=== PATIENT | male | born 1985 | race African-American/Black ===

== ENCOUNTER → 2019-01-08 14:13 | Outpatient (CLI) | payer MEDICAID | END | disposition home or self-care (01) | LOC: D.MRI 14:13 | PROVIDERS: ATTEND Orthopaedic Surgery | DX: S83.232A Complex tear of medial meniscus, current injury, left knee, initial encounter (principal); X58.XXXA Exposure to other specified factors, initial encounter ==

== ENCOUNTER 2019-03-03 08:28 | Day surgery (SDC) | payer MEDICAID ==
[2019-02-26 14:07] LABS: HEMATOCRIT 45.5 % (42.0-54.0); HEMOGLOBIN 16.4 g/dL (13.5-17.5); MCH 31.5 pg (26.0-34.0); MCV 87.3 fL (80.0-100.0); MEAN PLATELET VOLUME 9.6 fL (7.4-10.4); RBC 5.21 10x6/uL (4.20-6.10); WBC 9.5 10x3/uL (4.8-10.8)
[2019-02-26 14:35] LABS: CALC OSMOLALITY 275 mosm/kg (275-300); CALCIUM 9.4 mg/dL (8.5-10.1); CHLORIDE - SERUM 102 mmol/L (98-107); CREATININE - SERUM 0.8 mg/dL (0.6-1.3); GLUCOSE 84 mg/dL (74-106); POTASSIUM - SERUM 3.5 mmol/L (3.5-5.1); SODIUM 140 mmol/L (136-145); UREA NITROGEN 6 mg/dL (7-18); eGFR NON AFRICAN AMERICAN > 90 mL/min (90-120)
[~2019-03-03] VITALS: Ht 180.3 cm; Wt 111.6 kg
[~2019-03-03 08:28] MED LIST: BUPROPION XL300 MG PO; BUSPAR10 MG PO; GLUCOPHAGE500 MG PO; INVEGA TRINZA 819 MG; NEURONTIN 300300 MG PO; PROPRANOLOL HCL60 M1 PO; VALTREX500 MG PO; VISTARIL25 MG PO; ZYPREXA20 MG PO
[2019-03-03 10:16] VITALS: BP 133/87; Ht 180.3 cm; Wt 111.6 kg
[2019-03-03] MEDS ORDERED: HYDROCODON-ACE1 EA10 PO (13:20)
--- NOTE | 2019-03-03 13:38 | NUR ---
CARE TO NICOL AWAN RN @[phone]
--- NOTE | 2019-03-03 15:18 | NUR ---
DR CLARK NOTIFIED AND REVIEWED PT'S BEHAVIOR AND ASSESSMENT RESULTS. PT IS A LOW RISK PER DR CLARK. DR. CLARK STATED TO GIVE REWOURCES TO PT AT TIME OF DISCHARGE. NO FURTHER ORDERS AT THIS TIME. RESOURCES REVIEWED WITH PT AND HE VERBALIZED UNDERSTANDING.
--- NOTE | 2019-03-03 19:15 | NUR ---
1420 RECIEVED REPORT ON PT FROM [facility]. PT AWAKE RECIEVED FULL LIW TRAY DENIES PAIN. FLAT AFFECT. DRESSING CDI. ICE PACK TO KNEE. 1450 PSYCH NURSE HERE TO EVALUATE PT FOR SUICIDE PREVENTION. 1600 IV REMOVED AND PT GONE FOR THE DAY, PT GIVEN INSTRUCTIONS ON CRUCTCHES. WBAT. 1625 INSTRUCTIONS GIVEN TO SISTER AND PT.
--- NOTE | 2019-03-05 15:43 | OP ---
PATIENT NAME: GRADY JARQUIN MEDICAL RECORD: [id number] :83 LOCATION:[facility] ADMISSION DATE: SURGEON: ANITHA BAEZA MD DATE OF OPERATION: 03/03/2019 PREOPERATIVE DIAGNOSIS: Patellofemoral syndrome of the left knee. POSTOPERATIVE DIAGNOSIS: Patellofemoral syndrome of the left knee. PROCEDURE: Arthroscopic lateral release of the left knee. SURGEON: Anitha Baeza MD ANESTHESIA: General. INTRAOPERATIVE COMPLICATIONS: None. SUMMARY OF PATHOLOGIC FINDINGS: The patient had a very profound C-type patella, consistent with preoperative MRI and radiographs. OPERATIVE SUMMARY IN DETAIL: After obtaining the appropriate preoperative orthopedic surgery consent as well as anesthetic consultation, evaluation, and clearance, the patient was brought to the operating room and placed on the operating table in the supine position. After general laryngeal mask was administered, tourniquet was placed about the proximal aspect of the left lower extremity. The left lower extremity was then prepped and draped in routine sterile fashion. At this point, the appropriate time-out was taken and all identifiers were agreed upon. The leg was elevated and exsanguinated. Tourniquet was inflated to 350 mmHg. Routine inferolateral portal was established followed by superomedial portal and inferomedial portal. Diagnostic arthroscopy did show the patient to have the above findings. Visualization portal was then switched to the inferomedial portal. The vastus lateralis was seen clearly along with lateral retinaculum and this was then released using the Trenary hook tip tissue ablator. Having completed this, arthroscopy portals were closed in routine interrupted fashion. Knee was infiltrated with 30 cc of 0.25% Marcaine with epinephrine and 40 mg of Depo-Medrol. Sterile dressings were applied. Tourniquet was deflated. The patient was awakened and taken to the recovery room in stable condition. All final needle and sponge counts were correct. TRANSINT:[id number] Voice Confirmation ID: [id number] DOCUMENT ID: [id number] ANITHA BAEZA MD at 1543 CC: [id number] DICTATION DATE: 03/03/19 1325 DORMITORY KEEPER: 03/03/19 1417 DEP [facility] [place] 03/03/19 [place] [id number]
== END 2019-03-03 16:25 | disposition home or self-care (01) ==
LOC: D.OPS 08:28 → D.PAN 12:00 → D.OPS 16:25
PROVIDERS: Anesthesiology; ATTEND Orthopaedic Surgery
DX: M22.2X2 Patellofemoral disorders, left knee (principal); Z01.812 Encounter for preprocedural laboratory examination